=== PATIENT | male | born 1990 | race Caucasian/White ===

== ENCOUNTER 2017-02-23 23:05 | Emergency (ER) | payer OTHER ==
[~2017-02-23] VITALS: Ht 177.8 cm; Wt 72.6 kg
[2017-02-23 23:22] VITALS: BP 130/91
[2017-02-24] MEDS ORDERED: methylPREDNISolone SOD SUCC 125 MG/2 ML VL IM ONE (01:45)
[2017-02-24] MEDS ORDERED: KETOROLAC TROMETH 60MG/2ML VIAL IM ONE (01:45)
== END 2017-02-24 02:20 | disposition home or self-care (01) ==
LOC: ER 23:10
DX: S73.111A Iliofemoral ligament sprain of right hip, initial encounter (principal); X58.XXXA Exposure to other specified factors, initial encounter; Y93.01 Activity, walking, marching and hiking; Y99.8 Other external cause status; Y92.89 Other specified places as the place of occurrence of the external cause
CPT/HCPCS: 73502; 96372; 99284; J1885; J2930

== ENCOUNTER 2017-03-10 16:15 | Emergency (ER) | payer SELFPAY ==
[~2017-03-10] VITALS: Ht 177.8 cm; Wt 77.1 kg
[2017-03-10] MEDS ORDERED: SODIUM CHLORIDE 0.9% 1,000 ML IVB ONE (16:25)
[2017-03-10] MEDS ORDERED: PANTOPRAZOLE SODIUM 40 MG/10 ML VIAL IV STA (16:25)
[2017-03-10] MEDS ORDERED: PROCHLORPERAZINE EDISYLATE 5 MG/ML 2ML VIAL IV ONE (16:30)
[2017-03-10] MEDS ORDERED: HYDROmorphone HCL 2 MG/ML VL IV ONE (16:30)
[2017-03-10 16:41] LABS: Basophils # (auto) 0 uL; Basophils % (auto) 0.5 % (0.0-2.0); CONDITION Y; Eosinophils # (auto) 0 uL; Eosinophils % (auto) 0.3 % (0.0-7.0); Hematocrit 40.2 % (41.0-53.0); Hemoglobin 13.8 g/dL (13.5-17.5); Lymphocytes # (auto) 1.8 uL; Lymphocytes % (auto) 36.9 % (10.0-50.0); Mean Corpuscular Hemoglobin 32.7 pg (28.0-32.0); Mean Corpuscular Hgb Conc. 34.4 g/dL (32.0-36.0); Mean Corpuscular Volume 94.8 fL (80.0-100.0); Mean Platelet Volume 8.1 fL (7.4-10.4); Monocytes # (auto) 0.3 uL; Monocytes % (auto) 5.5 % (0.0-12.0); Neutrophils # (auto) 2.7 uL; Neutrophils % (auto) 56.8 % (37.0-80.0); Platelet Count (auto) 303 10^3/uL (140-450); Red Cell Distribution Width 12.7 % (11.6-16.0); White Blood Cell 4.8 10^3/uL (4.4-10.8)
[2017-03-10 17:02] LABS: Albumin 3.9 g/dL (3.4-5.0); BUN/Creatinine Ratio 11.4
[2017-03-10 17:05] LABS: Bilirubin, Total 0.5 mg/dL (0.2-1.0); Total Protein 7.7 g/dL (6.4-8.2)
[2017-03-10 17:12] LABS: Amylase 62 U/L (25-115)
[2017-03-10 17:21] LABS: Potassium 3.8 mmol/L (3.5-5.1)
[2017-03-10] MEDS ORDERED: IOHEXOL 300 MG/ML 100ML BOTTLE IJ ONE (18:02)
[2017-03-10] MEDS ORDERED: ONDANSETRON HCL 4 MG/2 ML VIAL IV ONE (18:30)
[2017-03-10 19:00] VITALS: BP 113/78
== END 2017-03-10 19:47 | disposition home or self-care (01) ==
LOC: ER 16:15 → EDBD 16:15 → ER 19:47
DX: R10.11 Right upper quadrant pain (principal); E83.51 Hypocalcemia; Z90.49 Acquired absence of other specified parts of digestive tract; R11.2 Nausea with vomiting, unspecified; R19.7 Diarrhea, unspecified
CPT/HCPCS: 36415; 71010; 74177; 80053; 82150; 83690; 85025; 94761; 96361; 96374; 96375; 99285; C9113; J0780; J1170; J2405; J7030; Q9967

== ENCOUNTER 2017-03-14 15:02 | Emergency (ER) | payer SELFPAY ==
[~2017-03-14] VITALS: Ht 177.8 cm; Wt 81.6 kg
[2017-03-14 15:32] LABS: Basophils # (auto) 0 uL; Basophils % (auto) 0.5 % (0.0-2.0); CONDITION Y; Eosinophils # (auto) 0 uL; Eosinophils % (auto) 0.1 % (0.0-7.0); Hematocrit 48.1 % (41.0-53.0); Hemoglobin 16.7 g/dL (13.5-17.5); Lymphocytes # (auto) 1.6 uL; Lymphocytes % (auto) 28.9 % (10.0-50.0); Mean Corpuscular Hemoglobin 32.7 pg (28.0-32.0); Mean Corpuscular Hgb Conc. 34.7 g/dL (32.0-36.0); Mean Corpuscular Volume 94.2 fL (80.0-100.0); Mean Platelet Volume 7.7 fL (7.4-10.4); Monocytes # (auto) 0.3 uL; Monocytes % (auto) 5.1 % (0.0-12.0); Neutrophils # (auto) 3.7 uL; Neutrophils % (auto) 65.4 % (37.0-80.0); Platelet Count (auto) 290 10^3/uL (140-450); Red Cell Distribution Width 12.7 % (11.6-16.0); White Blood Cell 5.7 10^3/uL (4.4-10.8)
[2017-03-14] MEDS ORDERED: SODIUM CHLORIDE 0.9% 1,000 ML IVB ONE (15:51)
[2017-03-14 15:52] LABS: Albumin 3.9 g/dL (3.4-5.0); Anion Gap 13 (5-15); Blood Urea Nitrogen 9 mg/dL (7-18); Calcium 7.7 mg/dL (8.5-10.1); Carbon Dioxide 25 mmol/L (21-32); Chloride 106 mmol/L (98-107); Glucose 98 mg/dL (74-106); Potassium 3.4 mmol/L (3.5-5.1); Sodium 144 mmol/L (136-145)
[2017-03-14 15:54] LABS: Amylase 63 U/L (25-115); BUN/Creatinine Ratio 12.7; GFR African American 171 mL/min; GFR Non-African American 141 mL/min
[2017-03-14] MEDS ORDERED: KETOROLAC TROMETH 30 MG/ML 1ML VIAL IV ONE (16:00)
[2017-03-14] MEDS ORDERED: PROMETHAZINE HCL 25 MG/ML 1ML IV PRN (16:00)
[2017-03-14 16:08] LABS: Alkaline Phosphatase 104 U/L (45-117); Aspartate Aminotransferase 22 U/L (15-37); Bilirubin, Total 0.5 mg/dL (0.2-1.0); Total Protein 7.1 g/dL (6.4-8.2)
[2017-03-14] MEDS ORDERED: NALBUPHINE HCL 10 MG/1ml INJECTION IV ONE (17:30)
[2017-03-14] MEDS ORDERED: PROMETHAZINE HCL 25 MG/ML 1ML IV ONE (17:30)
[2017-03-14 19:21] LABS: Urine Bilirubin Negative (Negative); Urine Blood Negative /uL (Negative); Urine Color Yellow (Yellow); Urine Glucose TRACE mg/dL (Normal); Urine Ketone Negative (Negative); Urine Mucus FEW (None Seen); Urine Nitrite Negative (Negative); Urine RBC 1 /hpf (0 - 3); Urine Squamous Epithelial Cell FEW /hpf (<5); Urine Urobilinogen Normal (Negative); Urine pH 6.5 (5.0-8.0)
[2017-03-14 19:43] VITALS: BP 118/78
== END 2017-03-14 19:53 | disposition home or self-care (01) ==
LOC: EDBD 15:02 → ER 15:09
DX: K29.70 Gastritis, unspecified, without bleeding (principal); E83.51 Hypocalcemia
CPT/HCPCS: 36415; 71020; 74176; 80053; 81001; 82150; 83690; 83735; 84484; 85025; 96361; 96374; 96375; 96376; 99285; J1885; J2300; J2550; J7030